=== PATIENT | female | born 1965 | race Caucasian/White ===

== ENCOUNTER 2021-12-14 07:13 | Outpatient (CLI) | payer OTHER, SELFPAY ==
--- NOTE | ~2021-12-14 | MM_ITS ---
EXAMINATION: MM screening [facility] [place] BI w kevin HISTORY: Screening mammogram TECHNIQUE: Craniocaudal and mediolateral oblique 3-D tomosynthesis images were obtained and synthetic 2-D images were generated. CAD analysis was submitted and interpreted. COMPARISON: 01/16/2019, 12/30/2018 11/29/2015, 11/16/2015 BREAST PARENCHYMAL COMPOSITION: There are scattered areas of fibroglandular density. FINDINGS: RIGHT BREAST: There is no evidence of suspicious mass, calcification, or architectural distortion to suggest malignancy. There has been no significant interval change. LEFT BREAST: There is a possible mass in the middle third of the upper inner breast best appreciated 7 cm from the nipple on the craniocaudal view. IMPRESSION: 1. Possible left breast mass. 2. Additional mammographic views and possible breast ultrasound are recommended. BI-RADS Category 0: Incomplete: Needs additional imaging evaluation. Reviewed, dictated and finalized at location A. EGEE FINISHER IMPRESSION: 1. Possible left breast mass. 2. Additional mammographic views and possible breast ultrasound are recommended . BI-RADS Category 0: Incomplete: Needs additional imaging evaluation.
== END 2021-12-14 07:14 | disposition home or self-care (01) ==
LOC: ANHIMG 07:15
PROVIDERS: Visit Provider Advanced Practice Midwife
DX: Z12.31 Encounter for screening mammogram for malignant neoplasm of breast (principal); R92.8 Other abnormal and inconclusive findings on diagnostic imaging of breast
CPT/HCPCS: 77063; 77067

== ENCOUNTER 2022-01-01 13:21 | Outpatient (CLI) | payer OTHER, SELFPAY ==
--- NOTE | ~2022-01-01 | MMUS_ITS ---
EXAMINATION: MM diagnostic [facility] LT w kevin, US breast LT limited HISTORY: Follow-up left breast asymmetry TECHNIQUE: Additional 3-D tomosynthesis images of the left breast were performed and synthetic 2-D im ages were generated. CAD analysis was submitted and interpreted. High resolution Limited left breast ultrasound was performed. COMPARISON: 12/14/2021 BREAST PARENCHYMAL COMPOSITION: Breast composed of scattered areas of fibroglandular density. FINDINGS: MAMMOGRAPHIC FINDINGS: The focal asymmetry medial aspect of the left breast on CC view is less apparent with spot compressio n views, most likely superimposed fibroglandular tissue. No discrete mass or architectural distortion is identified. There are scattered benign left breast calcifications. ULTRASOUND: Limited left breast ultrasound: There is a surgical scar medially in the left breast. No discrete kade id or cystic masses are identified in the medial aspect of the left breast. No sonographic evidence f or malignancy. IMPRESSION: 1. No evidence for malignancy in the left breast. 2. Routine yearly screening mammogram and regular clinical breast examination are recommended. BI-RADS Category 2: Benign finding(s). Reviewed, dictated and finalized at location A. IMPRESSION: 1. No evidence for malignancy in the left breast. 2. Routine yearly screening mammogram and regular clinical breast examination a re recommended. BI-RADS Category 2: Benign finding(s).
== END 2022-01-01 13:22 | disposition home or self-care (01) ==
LOC: ANHIMG 13:24
PROVIDERS: PCP Internal Medicine; Visit Provider Advanced Practice Midwife
DX: R92.8 Other abnormal and inconclusive findings on diagnostic imaging of breast (principal)
CPT/HCPCS: 76642; 77061; 77065; G0279

== ENCOUNTER 2022-07-02 08:33 | Outpatient (CLI) | payer OTHER, SELFPAY ==
[2022-07-02 09:49] LABS: Anion Gap 9 mmol/L (8-16); Blood Urea Nitrogen 13 mg/dL (7-17); Calcium 9.1 mg/dL (8.4-10.2); Carbon Dioxide 27 mmol/L (22-30); Chloride 97 mmol/L (98-107); Estimated Glomerular Filt Rate > 60; Glucose 274 mg/dL (65-110); Sodium 133 mmol/L (137-145)
== END 2022-07-02 08:34 | disposition home or self-care (01) ==
PROVIDERS: Anesthesiology; PCP Internal Medicine; Visit Provider Urology
DX: N39.3 Stress incontinence (female) (male) (principal); E11.9 Type 2 diabetes mellitus without complications; Z01.818 Encounter for other preprocedural examination
CPT/HCPCS: 36415; 80048; 87086

== ENCOUNTER 2022-07-06 00:23 | Day surgery (SDC) | payer OTHER, SELFPAY ==
[2022-06-29 10:10] VITALS: BMI 35.4
--- NOTE | 2022-06-29 10:23 | PC.NURSE ---
Report to the Outpatient Waiting Room, entrance under the green pavilion located off [facility], at time 7:00 on date 07/06/22. OR Time: 9:00. Time changes happen often and if your time is changed the preop area will call you the afternoon before. - You and your visitor will be asked to self-screen and do not enter if you have any COVID symptoms. - Only one visitor and NO children visitors are allowed at this time. - The patient visitor is requested to leave or wait in car when not with patient due to restrictions. - A mask is required within the hospital. Patients may have clear liquids (water, carbonated beverages, clear teas, apple juice) until 3 hours prior to surgery (6:00) with a maximum of 20 ounces. - No food from midnight until time of surgery Take the following medications with a SIP of water the morning of surgery: NONE Medications to discontinue per physician: VITAMINS/SUPPLEMENTS Date to take last dose: 07/02/22 Please no make-up, nail kazakh, hairspray, perfume, deodorant, or body powder the day of surgery. No jewelry (including any body piercings) or valuables the day of surgery, leave them at home. Please take a shower or bath the night before, or the morning of, surgery with an antibacterial soap. Wear comfortable, loose fitting clothing. - Jewelry must be removed prior to entering the operating room. Rings and piercings that are not removed may be cut off. - The hospital will not accept responsibility for valuables. - Please leave all valuables, including medications, at home the day of surgery. If you are going home after surgery, a licensed parcel post truck driver must drive you home. - NO public transportation without another adult. - We recommend that an adult stay with you for 24 hours following discharge. - We also recommend that you do not drive, make important decision, drink alcoholic beverages, or take any drugs that were not prescribed by your health care provider for at least 24 hours after your discharge time. Follow any additional instructions given to you from your surgeon. If you or anyone in your household have experienced Covid symptoms in the past week, please notify your surgeon or the nurse liaison at the phone number below for possible testing. Telephone instructions given to PT - DAVID CERVANTES and asked if any additional questions and then verbalized understanding. Patient advised to call surgeon office or pre surgery nurse liaison [phone] if any additional questions.
--- NOTE | 2022-07-01 06:15 | PM.IMHP ---
H&P: HPI History of Present Illness Date/Time: 07/01/22 06:15 Chief Complaint: KIP Narrative: 56 yo with KIP PMFSH Family History Family History Sibling Family history of diabetes mellitus in first degree relative Family history of malignant neoplasm of thyroid Father Family history of heart disease in male family member before age 55 Mother Family history of heart disease in male family member before age 55 Social History Social History Smoking status: Never smoker Alcohol intake: current Drinks per week: 3 Substance use: current Substance use type: marijuana Other substance usage details: THC DROPS OCCASIONALLY Spiritual care concerns: No Meds Home Medications and Allergies Home Medications Medication Instructions Recorded Confirmed Type atorvastatin 80 mg tablet 80 mg PO HS 06/29/22 06/29/22 History calcium carbonate 600 mg calcium 600 mg PO BID 06/29/22 06/29/22 History (1,500 mg) tablet (Calcium) cetirizine 10 mg tablet 10 mg PO DAILY 06/29/22 06/29/22 History dulaglutide 0.75 mg/0.5 mL 0.75 mg subcut WEEKLY 06/29/22 06/29/22 History subcutaneous pen injector (Trulicity) lisinopril 10 mg tablet 10 mg PO DAILY 06/29/22 06/29/22 History metformin 500 mg tablet 1,000 mg PO BID 06/29/22 06/29/22 History multivitamin 1 tablet PO DAILY 06/29/22 06/29/22 History Allergies Allergy/AdvReac Type Severity Reaction Status Date / Time No Known Allergies Allergy Unverified 06/29/22 10:07 Exam Narrative: + urethral mobility Assessment and Plan Assessment and plan (1) KIP (stress urinary incontinence, female): Code(s): N39.3 - Stress incontinence (female) (male) Status: Acute Assessment and Plan: urethral sling
[2022-07-06 06:38] VITALS: BP 146/86; PULSE 74; RESP 16; TEMP 36.9; O2SAT 99
[2022-07-06] MEDS: LACTATED RINGERS 1,000 ML 30 ML IV CONT (06:56)
[2022-07-06 07:01] LABS: Glucose Point of Care 301 mg/dl (65-105)
--- NOTE | 2022-07-06 07:18 | WPDANESEPPF ---
Anes - Initial Pre Proc Eval Procedure: Operation Date: 07/06/22 08:15 Proposed Procedures p Urethral Sling - Corey Phillip MD Date/Time: 07/06/22 07:18 Surgeon: Corey Phillip MD Pre Op Diagnosis: stress incontinence Patient Data Age: 56 Gender: F Height: 1.75 m Weight: 111.9 kg Last Vital Signs Temp 36.9 C 07/06/22 06:38 Pulse 74 07/06/22 06:38 Resp 16 07/06/22 06:38 BP 146/86 H 07/06/22 06:38 Pulse Ox 99 07/06/22 06:38 O2 Del Method Room Air 07/06/22 06:38 Allergies Allergy/AdvReac Type Severity Reaction Status Date / Time No Known Allergies Allergy Unverified 06/29/22 10:07 Home Medications Medication Instructions Recorded Confirmed Type atorvastatin 80 mg tablet 80 mg PO HS 06/29/22 06/29/22 History calcium carbonate 600 mg calcium 600 mg PO BID 06/29/22 06/29/22 History (1,500 mg) tablet (Calcium) cetirizine 10 mg tablet 10 mg PO DAILY 06/29/22 06/29/22 History dulaglutide 0.75 mg/0.5 mL 0.75 mg subcut WEEKLY 06/29/22 06/29/22 History subcutaneous pen injector (Trulicity) lisinopril 10 mg tablet 10 mg PO DAILY 06/29/22 06/29/22 History metformin 500 mg tablet 1,000 mg PO BID 06/29/22 06/29/22 History multivitamin 1 tablet PO DAILY 06/29/22 06/29/22 History Laboratory Tests 07/06/22 06:54 POC Capillary Glucose 301 mg/dl H mg/dl (65-105) Patient hx anesthesia problems: none Family hx anesthesia problems: none Results Review: All pre-operative results and documents have been reviewed as part of the pre-operative evaluation. [facility] Past Medical History Medical History (Updated 07/06/22 @ 07:20 by Faustino Singh MD) Diabetes HTN (hypertension) Hyperlipidemia Osteoarthritis Family History Family History Sibling Family history of diabetes mellitus in first degree relative Family history of malignant neoplasm of thyroid Father Family history of heart disease in male family member before age 55 Mother Family history of heart disease in male family member before age 55 Social History Social History Smoking status: Never smoker Alcohol intake: current Drinks per week: 3 Substance use: current Substance use type: marijuana Other substance usage details: THC DROPS OCCASIONALLY Living arrangements: alone Spiritual care concerns: No Anes - Eval Final PreProcedure Day of Procedure 07/06/22 07:18 Patient weight: obese Heart: regular rate and rhythm Lungs: clear to auscultation and normal air movement Airway: Mallampati scale class II Neurological: alert and oriented Last oral intake: >/= 8 hours ASA classification: III Emergent: no Anesthetic plan: proceed Anesthesia type and monitoring: general GIVS Results Review: All pre-operative results and documents have been reviewed as part of the pre-operative evaluation. Informed Consent: The patient's anesthetic plan and its attendant risks and benefits were discussed with the patient/family/POA. Questions were solicited and answers provided to the satisfaction of the patient/family/POA.
--- NOTE | 2022-07-06 07:22 | WPDHPUPDATE1 ---
History and Physical Update Update Date/Time: 07/06/22 07:22 History and Physical has been reviewed, including an updated exam of the patient. There are NO changes in the patient's condition. Risks, benefits, and alternatives have been discussed and questions answered. Patient agrees to proceed with procedure.
[2022-07-06] MEDS: ceFAZolin 2 GM/D5W 50 ML 2 GM/50 ML BAG IVPB (08:16)
[2022-07-06] MEDS: BUPIVACAINE/EPINEPHRINE 0.25% 50 ML VIAL 20 ML INFILTRATE (08:30)
--- NOTE | 2022-07-06 08:45 | W.PM.PROC2 ---
Procedure Note - Detailed Date of Procedure 07/06/22 Pre-op Diagnosis stress incontinence Post-op Diagnosis Same Procedure Performed mid urethral sling cystoscopy Surgeon Corey Phillip MD Indications This is a female with confirm stress urinary incontinence. She desires surgical correction. She understands the risks of bleeding, infection, injury to the urinary tract, vaginal mesh extrusion, urinary tract mesh erosion, obstructive voiding requiring a secondary procedure, hip and leg pain, dyspareunia, inability to improve overactive bladder symptoms. She agrees to proceed. Findings Uncomplicated urethral sling Description of Procedure She was correctly identified. Informed consent obtained. She was brought the operating room. She was given appropriate anesthesia. She was given appropriate perioperative antibiotics. A time-out performed. I marked out the site of the inner thigh incisions. I anesthetized the skin and made those incisions. I anesthetized the anterior vaginal wall over the mid urethra. I made a 1 cm incision. I dissected out laterally taking great care not to injure the refilled vaginal wall. I passed the helical trocars. First on the left. Then on the right. I did this from the thigh incision towards the vaginal incision. The sling was connected to the trocars and brought out through the thigh incision. I tensioned the sling appropriately. I cut and the plastic sheaths. I then closed the incision with 2 0 Vicryl. On cystoscopy there is no tumors or surgical artifact. There was no surgical artifact in the urethra. I cut the excess sling material. Close incisions with glue. She was awakened and transferred to the PACU in stable condition. Implants Urethral sling Estimated Blood Loss 20 Drains No Packing No Pathology None sent Complications No immediate complications Condition Stable Disposition PACU
[2022-07-06 08:46] VITALS: BP 142/70; PULSE 75; RESP 16; O2SAT 96
[2022-07-06 09:15] VITALS: BP 135/78; PULSE 75; RESP 20
[2022-07-06 09:45] VITALS: BP 153/73; PULSE 63; RESP 20
[2022-07-06 10:10] VITALS: BP 150/82; PULSE 64; RESP 20
== END 2022-07-06 10:15 | disposition home or self-care (01) ==
PROVIDERS: PCP Internal Medicine; Visit Provider Urology
PROC: (CPT 57288; principal; 2022-07-06 08:15)
DX: N39.3 Stress incontinence (female) (male) (principal); I10 Essential (primary) hypertension; E11.9 Type 2 diabetes mellitus without complications; E78.5 Hyperlipidemia, unspecified; E66.9 Obesity, unspecified; Z68.36 Body mass index [BMI] 36.0-36.9, adult; F12.90 Cannabis use, unspecified, uncomplicated; Z79.899 Other long term (current) drug therapy; Z79.84 Long term (current) use of oral hypoglycemic drugs
CPT/HCPCS: 57288; 36415; 80048; 82948; 87086; A9270; C1771; J0690; J2250; J2704; J3010; J7030; J7120

== ENCOUNTER 2022-08-22 16:51 | Emergency (ER) | payer OTHER, SELFPAY ==
--- NOTE | ~2022-08-22 | XR_ITS ---
XR ankle RT min 3V DATE: 08/22/2022 17:40 INDICATION: Injury to right ankle today. Lateral pain. TECHNIQUE: 4 views COMPARISON: None FINDINGS: There is mild lateral soft tissue swelling. There is a mildly laterally displaced approximately 1.4 mm wide 7 mm vertical cortical avulsion fract ure of uncertain age from the lateral aspect of the lateral malleolus. Small os subfibulare. Mild plantar and slight posterior calcaneal enthesopathy. IMPRESSION: Cortical avulsion fracture of undetermined age from the lateral aspect of the lateral mal leolus, mild lateral soft tissue swelling Reviewed, dictated and finalized at location A. ER/ASSAY TECH IMPRESSION: Cortical avulsion fracture of undetermined age from the lateral asp ect of the lateral malleolus, mild lateral soft tissue swelling
[2022-08-22 18:24] VITALS: BP 143/81; PULSE 76; RESP 14; TEMP 36.7; O2SAT 98
--- NOTE | 2022-08-22 18:37 | ED.LOWEXIN ---
HPI - Extremity Injury (Lower) General Chief Complaint: Extremity Injury, Lower Stated Complaint: right ankle pain Time Seen by Provider: 08/22/22 18:28 Source: RN notes reviewed History of Present Illness HPI Narrative: Patient presents emergency room from home for right lateral ankle pain. Patient states approximate 1:30 PM today she was walking off of the dock and stepped on the ground she states that she stepped awkwardly and had a pain in her right lateral ankle and felt a pop states since that time she had some swelling and pain in the right lateral ankle she denies feeling of the ground she denies any other trauma or injury she denies any numbness or tingling of the extremity Related Data Home Medications Medication Instructions Recorded Confirmed atorvastatin 80 mg tablet 80 mg PO HS 06/29/22 06/29/22 calcium carbonate 600 mg calcium 600 mg PO BID 06/29/22 06/29/22 (1,500 mg) tablet (Calcium) cetirizine 10 mg tablet 10 mg PO DAILY 06/29/22 06/29/22 dulaglutide 0.75 mg/0.5 mL 0.75 mg subcut WEEKLY 06/29/22 06/29/22 subcutaneous pen injector (Trulicity) lisinopril 10 mg tablet 10 mg PO DAILY 06/29/22 06/29/22 metformin 500 mg tablet 1,000 mg PO BID 06/29/22 06/29/22 multivitamin 1 tablet PO DAILY 06/29/22 06/29/22 Allergies Allergy/AdvReac Type Severity Reaction Status Date / Time No Known Allergies Allergy Unverified 06/29/22 10:07 Review of Systems Review of Systems: Gen.: Denies fevers or chills Musculoskeletal: See HPI Neuro: Denies numbness, tingling, weakness Skin: Denies rash Endo: Denies DM PMF Past Medical History Medical History Diabetes HTN (hypertension) Hyperlipidemia Osteoarthritis Family History Family History Sibling Family history of diabetes mellitus in first degree relative Family history of malignant neoplasm of thyroid Father Family history of heart disease in male family member before age 55 Mother Family history of heart disease in male family member before age 55 Social History Social History (Reviewed 11/09/22 @ 18:37 by GODWIN Camargo Smoking status: Never smoker Alcohol intake: current Drinks per week: 3 Substance use: current Substance use type: marijuana Other substance usage details: THC DROPS OCCASIONALLY Spiritual care concerns: No Exam Narrative: APPEARANCE: No acute distress, nontoxic, resting in bed Eyes: EOMI HEENT: Normocephalic, atraumatic, RESPIRATORY: No respiratory distress MUSCULOSKELETAl: Tender to palpation of the right lateral malleolus with swelling present no tenderness of the proximal fibula or the base of the fifth metatarsal dorsalis pedis pulse 2+, neurovascularly intact no tenderness of the anterior medial or posterior ankle NEURO: Awake and alert. Following commands, speech normal, no focal deficits SKIN:: Warm, dry. Normal Color no rash or lesions Course Course Emergency Course: Called discussed with Dr. Houser presentation work-up we recommend the patient be placed in an Dread wrap and crutches and for patient to obtain a ankle air splint from local drugstore follow-up as an outpatient Discussed with patient results of workup and diagnosis. Discussed need for follow-up with primary care, proper use of medication, and reasons to return to the emergency department. Patient understands and agrees to current treatment plan Vital Signs Vital signs: Vital Signs Temperature 98.1 F 08/22/22 18:24 Pulse Rate 76 08/22/22 18:24 Respiratory Rate 14 08/22/22 18:24 Blood Pressure 143/81 H 08/22/22 18:24 Pulse Oximetry 98 08/22/22 18:24 Oxygen Delivery Room Air 08/22/22 18:24 Temperature 98.1 F 08/22/22 18:24 Pulse Rate 76 08/22/22 18:24 Respiratory Rate 14 08/22/22 18:24 Blood Pressure 143/81 H 08/22/22 18:24 Pulse Oximetry 98 08/22/22 18:24 Oxygen Delivery Room Air
== END 2022-08-22 19:20 | disposition home or self-care (01) ==
PROVIDERS: Emergency Provider Emergency Medicine; PCP Internal Medicine
DX: S82.61XA Displaced fracture of lateral malleolus of right fibula, initial encounter for closed fracture (principal); E11.9 Type 2 diabetes mellitus without complications; I10 Essential (primary) hypertension; E78.5 Hyperlipidemia, unspecified; M19.90 Unspecified osteoarthritis, unspecified site; Z79.84 Long term (current) use of oral hypoglycemic drugs; Z79.85 Long-term (current) use of injectable non-insulin antidiabetic drugs
CPT/HCPCS: 73610; 99284

== ENCOUNTER 2022-10-24 10:10 | Emergency (ER) | payer OTHER, SELFPAY ==
[2022-10-24 10:16] VITALS: BP 143/69; PULSE 102; RESP 14; TEMP 37; O2SAT 99
--- NOTE | 2022-10-24 10:56 | ED.URI ---
HPI - URI/Sore Throat General Chief Complaint: Upper Respiratory Infection Stated Complaint: Congestion/Cough/Chest Congestion Time Seen by Provider: 10/24/22 10:25 Source: patient Mode of arrival: ambulatory Limitations: no limitations History of Present Illness HPI Narrative: Ms. Welch is a 56-year-old female patient presenting to the clinic today with complaints of nasal/ chest congestion and a productive cough with yellow-green phlegm. She reports that the symptoms started 6 days ago. She reports that she has had an exposure to the her grandson and daughter who tested positive for VENTURA MD elicited complaint: sore throat and nasal congestion Related Data Home Medications Medication Instructions Recorded Confirmed atorvastatin 80 mg tablet 80 mg PO HS 06/29/22 10/24/22 dulaglutide 0.75 mg/0.5 mL 0.75 mg subcut WEEKLY 06/29/22 10/24/22 subcutaneous pen injector (Trulicity) lisinopril 10 mg tablet 10 mg PO DAILY 06/29/22 10/24/22 metformin 500 mg tablet 1,000 mg PO BID 06/29/22 10/24/22 multivitamin 1 tablet PO DAILY 06/29/22 10/24/22 Allergies Allergy/AdvReac Type Severity Reaction Status Date / Time No Known Allergies Allergy Verified 10/24/22 10:40 Review of Systems Review of Systems: Pertinent positives per HPI. Patient denies any fever, chills, rash, headache, visual changes, dizziness, shortness of breath, chest pain, palpitations, nausea, vomiting, diarrhea, constipation, abdominal pain, or any urinary issues. [facility] Past Medical History Medical History Diabetes History of cancer HTN (hypertension) Hyperlipidemia Osteoarthritis Surgical History Surgical History History of cholecystectomy History of knee surgery left knee, meniscus repair Family History Family History Sibling Family history of diabetes mellitus in first degree relative Family history of malignant neoplasm of thyroid Cancer Father Family history of heart disease in male family member before age 55 Alcoholism Cancer Family history of diabetes mellitus in first degree relative Hypertension Heart disease Mother Family history of heart disease in male family member before age 55 Hypertension Heart disease Daughter Asthma Other Family history of diabetes mellitus in first degree relative Social History Social History Smoking status: Never smoker Alcohol intake: current Drinks per week: 3 Substance use: current Substance use type: marijuana Other substance usage details: THC DROPS OCCASIONALLY Spiritual care concerns: No Comments At the time of my signature, I reviewed and agree with the nursing past medical, surgical, social, and family history. There is no relevant family history pertinent to the patient complaint. Exam Narrative: General: Well-developed, well nourished, in no apparent distress Head: Normocephalic, atraumatic Eyes: Pupils equally round and reactive to light bilaterally, EOM intact, sclera and conjunctive clear, no discharge, lids normal Ears: TMs intact and clear, ear canals clear, no drainage, grossly hearing normal. Nose: Nares patent, clear nasal discharge, no inflammation, no sinus tenderness. Mouth: Oral pharynx without lesions or masses, good dentition, MMM. postnasal drip Neck: Supple, trachea midline, no enlargement of anterior or posterior cervical nodes, no thyroid masses or goiter palpable. Cardio: Regular rate and rhythm, s1 and s2 normal, no murmur appreciated. Resp: Clear to auscultation bilaterally, no rhonchi, rales, wheezing or rubs Course Course Emergency Course: Portions of this record may have been created with voice recognition software. Level of Care: Express Care Visit Vital Signs Vital signs: Vital Si
[2022-10-24 19:15] LABS: SARS-CoV-2 RNA PCR Negative
== END 2022-10-24 11:07 | disposition home or self-care (01) ==
PROVIDERS: Emergency Provider Nurse Practitioner Family; PCP Internal Medicine
DX: J06.9 Acute upper respiratory infection, unspecified (principal); Z20.822 Contact with and (suspected) exposure to COVID-19; E11.9 Type 2 diabetes mellitus without complications; I10 Essential (primary) hypertension; E78.5 Hyperlipidemia, unspecified; M19.90 Unspecified osteoarthritis, unspecified site; Z85.9 Personal history of malignant neoplasm, unspecified; Z79.84 Long term (current) use of oral hypoglycemic drugs
CPT/HCPCS: 87426; 99213; C9803; G0463; U0003; U0005

== ENCOUNTER 2022-12-05 11:03 | Outpatient (RCR) | payer OTHER, SELFPAY | END 2022-12-05 11:04 | disposition home or self-care (01) | LOC: ANHGOSHPT 11:03 | PROVIDERS: PCP Internal Medicine; Visit Provider Nurse Practitioner | DX: M25.571 Pain in right ankle and joints of right foot (principal) | CPT/HCPCS: 99199 ==

== ENCOUNTER 2023-03-18 11:40 | Outpatient (CLI) | payer OTHER, SELFPAY ==
--- NOTE | ~2023-03-18 | MM_ITS ---
EXAMINATION: MM screening [facility] BI w kevin HISTORY: Screening TECHNIQUE: Craniocaudal and mediolateral oblique 3-D tomosynthesis images were obtained and synthetic 2-D images were generated. CAD analysis was submitted and interpreted. COMPARISON: Comparison to multiple prior studies sequentially, with oldest reviewed study dated 12/2015. BREAST PARENCHYMAL COMPOSITION: There are scattered areas of fibroglandular density. FINDINGS: There is no evidence of suspicious mass, calcification, or architectural distortion to sugg est malignancy in either breast. There has been no suspicious interval change. IMPRESSION: 1. No mammographic evidence of malignancy. 2. Recommend routine screening mammography in one year. BI-RADS Category 1: Negative Reviewed, dictated and finalized at location A.
== END 2023-03-18 11:41 | disposition home or self-care (01) ==
LOC: CHSIMG 11:41
PROVIDERS: PCP Internal Medicine; Visit Provider Nurse Practitioner Obstetrics & Gynecology
DX: Z12.31 Encounter for screening mammogram for malignant neoplasm of breast (principal)
CPT/HCPCS: 77063; 77067

== ENCOUNTER 2024-05-08 13:58 | Outpatient (CLI) | payer OTHER, SELFPAY ==
--- NOTE | ~2024-05-08 | MM_ITS ---
EXAMINATION: MM screening [facility] BI w kevin HISTORY: Screening TECHNIQUE: Craniocaudal and mediolateral oblique 3-D tomosynthesis images were obtained and synthetic 2-D images were generated. CAD analysis was submitted and interpreted. COMPARISON: Comparison to multiple prior studies sequentially, with oldest reviewed study dated 12/30. BREAST PARENCHYMAL COMPOSITION: Not dense: There are scattered areas of fibroglandular density. FINDINGS: There is no evidence of suspicious mass, calcification, or architectural distortion to sugg est malignancy in either breast. There has been no suspicious interval change. IMPRESSION: 1. No mammographic evidence of malignancy. 2. Recommend routine screening mammography in one year. BI-RADS Category 2: Benign finding(s). Reviewed, dictated and finalized at location B.
--- NOTE | ~2024-05-08 | DEXA_ITS ---
Bone Density Report Name: DAVID CERVANTES Age: 58 Sex: Female Ethnicity: White Date of : 1965 Indication: postmenopausal; screening for osteoporosis; height loss; prior fracture; Referring Provider: CODY, MILO Cardenas Study: Bone densitometry was performed. Exam Date: May 08, 2024 Accession number: [id number] Bone Density: Region BMD T-score Z-score Classification AP Spine(L1-L4) 1.050 0.0 1.5 Normal Femoral Neck (Left) 0.842 -0.1 1.2 Normal Total Hip (Left) 0.942 0.0 1.0 Normal Femoral Neck (Right) 0.840 -0.1 1.2 Normal Total Hip (Right) 0.943 0.0 1.0 Normal Femoral Neck Mean 0.841 -0.1 1.2 Normal Total Hip Mean 0.942 0.0 1.0 Normal World Health Organization criteria for BMD impression classify patients as: Normal (T-score at or above -1.0), Osteopenia (T-score between -1.0 and -2.5), or Osteoporosis (T-score at or below -2.5). 10-year Fracture Risk: FRAX not reported because: All T-scores for Spine Total, Hip Total, Femoral Neck at or above -1.0 Clinical Information Provided by Patient: Has had a low trauma fracture Has used the following medications: Vitamin D, Calcium Patient maximum height was 69 Menopause Age: 51 No regular weight bearing exercise Drinks caffeinated beverages Onset of menses at age 11 Number of children 3 Impression: The patient has normal bone mass. The patient has risk factors, including: previous fracture. Discussion: BONE DENSITY IS ABOVE THE MINIMUM DESIRABLE LEVEL AT ALL SKELETAL SITES TESTED. This patient?s bone mineral density is above the minimum desirable level (T-score -1.0 or better) at all sites measured. The patient should follow a healthful lifestyle (good nutrition with adequate calcium and vitamin D, and appropriate weight-bearing exercise). Follow-Up: Consider repeating this study in 5 years or sooner if there is some new clinical indication. Reported by: Dr. Pedro Daly on 05/08/2024 2:37:00 PM. Reviewed, dictated and finalized at location A.
== END 2024-05-08 13:59 | disposition home or self-care (01) ==
PROVIDERS: PCP Nurse Practitioner; Visit Provider Nurse Practitioner
DX: Z12.31 Encounter for screening mammogram for malignant neoplasm of breast (principal); Z78.0 Asymptomatic menopausal state
CPT/HCPCS: 77063; 77067; 77080

== ENCOUNTER 2025-05-07 14:53 | Outpatient (CLI) | payer OTHER, SELFPAY ==
--- NOTE | ~2025-05-07 | MM_ITS ---
EXAMINATION: MM screening [facility] BI w kevin HISTORY: Screening TECHNIQUE: Craniocaudal and mediolateral oblique 3-D tomosynthesis images were obtained and synthetic 2-D images were generated. CAD analysis was submitted and interpreted. COMPARISON: Comparison to multiple prior studies sequentially, with oldest reviewed study dated 02/2019. BREAST PARENCHYMAL COMPOSITION: Not dense: There are scattered areas of fibroglandular density. FINDINGS: Developing clustered indeterminate calcifications upper outer quadrant of the right breast, middle third. Left breast is stable without evidence for malignancy. IMPRESSION: 1. Developing cluster of indeterminate right breast calcifications, upper outer quadrant, middle thir d. 2. Magnification views are recommended. BI-RADS Category 0: Incomplete: Needs additional imaging evaluation. Reviewed, dictated and finalized at location A. IMPRESSION: 1. Developing cluster of indeterminate right breast calcifications, upper outer quadrant, middle third. 2. Magnification views are recommended. BI-RADS Category 0: Incomplete: Needs additional imaging evaluation.
--- OUTSIDE RECORDS SUMMARY | 2025-05-07 14:56 | XMS_ITS | Clinical Summary ---
Author Organization [facility] Address [address] [place] [address] Care Team Providers Care Lavatory Attendant Name Role Phone Unavailable Primary Care Provider Unavailabl e Source Comments [facility],non-owned Affiliates and Associated Physician Practices is amultiple site organization consisting of ambulatory clinics and hospital sitesin [place], [place], [place] and [place]. This disclosure is being madepursuant to the Care Everywhere program and may not contain all information available regarding this patient. Last updated 18.[employer] [facility] Allergies No known active allergies Medications * Be aware that medications may not be up to date on this document. Alwaysverify current medications with the patient. 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 Gender Identity Not on file Sexual Orientation Not on file Last Filed Vital Signs Vital Sign Reading Time Taken Comments Blood Pressure 142/90 11/18/2018 10:30 AM TIPPLE REPAIRER Pulse 94 11/18/2018 10:03 AM TIPPLE REPAIRER Temperature 36.8 C (98.2 F) 11/18/2018 10:03 AM TIPPLE REPAIRER Respiratory Rate 16 11/18/2018 10:03 AM TIPPLE REPAIRER Oxygen Saturation 98% 11/18/2018 10:03 AM TIPPLE REPAIRER Inhaled Oxygen Concentration - - Weight 108.9 kg (240 lb) 11/18/2018 10:03 AM TIPPLE REPAIRER Height 175.3 cm (5' 9) 11/18/2018 10:03 AM TIPPLE REPAIRER Body Mass Index 35.44 11/18/2018 10:03 AM TIPPLE REPAIRER Plan of Treatment Health Maintenance Due Date Last Done Comments COLOGUARD (AGES 45-75) - COL ON CA SCREENING 1965 COLON MONITORING 1963 COLONOSCOPY - COLON CA SCREENING 1963 CT COLONOGRAPHY - COLON CA SCREENING 1965 Colorectal Cancer Screening 1965 FIT - COLON CA SCREENING 1963 FLEX SIG - COLON CA SCREENING 1963 LIPID TESTING 1965 MAMMOGRAM 1963 HIV SCREENING 1978 HEPATITIS C SCREENING 11/22/1981 DTAP/TDAP/TD VACCINES (1 - Tdap) 1982 PAP with HPV 1993 PNEUMOCOCCAL VACCINE 50+ (1 of 1 - PCV) 2013 ZOSTER VACCINE (1 of 2) 2013 SCREENING FOR DIABETES 09/07/2017 COVID-19 VACCINE (1 - 2023-2 5 season) 2024 DEPRESSION SCREENING 10/14/2024 INFLUENZA VACCINE (#1) 2025 Respiratory Syncytial Virus (RSV) Vaccine Pt: or over 60 yrs (1 - 1-dose 75+ series) 2038 HEPATITIS B VACCINE Aged Out No longe r eligible based on patient's age to complete this topic HIB VACCINE Aged Out No longer eligi ble based on patient's age to complete this topic HPV VACCINE Aged Out No longer eligi ble based on patient's age to complete this topic MENINGOCOCCAL (Group B) VACC INE SHARED DECISION-MAKING Aged Out No longer eligibl e based on patient's age to complete this topic MENINGOCOCCAL GROUPS A/C/Y/W VACCINE Aged Out No longer eligible b ased on patient's age to complete this topic [place] [place] [address] [facility]
--- OUTSIDE RECORDS SUMMARY | 2025-05-07 14:56 | XMS_ITS | Referral Summary ---
Author Organization [facility] [address] Address [address] [place] [id number] Care Team Providers Care [employer] Professor Name Role Phone Quin Corley MD Primary Care Provide r Allergies No known active allergies Medications lovastatin (MEVACOR) 20 mg tablet take 1 tablet by oral route every day with the evening meal 90 3 03/21/2016 Active metFORMIN (GLUCOPHAGE) 850 mg tablet take 1 tablet by ORAL route 2 times every day with meals 180 3 03/21/2016 Active lisinopriL (PRINIVIL,ZESTR IL) 10 mg tablet Take 1 tablet (10 mg total) by mouth daily Active Trulicity 0.75 mg/0.5 mL pen injector 06/23/2021 Active albuterol HFA (PROVENTIL HFA,VENTOLIN HFA,PROAIR HFA) 90 mcg/actuation inhaler Inhale 2 puffs every 4 (four) hours as needed for wheezing 1 each 04/24/2022 Active albuterol HFA (PROVENTIL HFA,VENTOLIN HFA,PROAIR HFA) 90 mcg/actuation inhalerIndicati ons:Hx of wheezing Inhale 2 puffs every 6 (six) hours as needed for wheezing 1 each 12/28/2024 12/29/19 26 Active tirzepatide (Mounjaro) 10 mg/0.5 mL pen injector injection Inject 0.5 mL (10 mg total) under the skin every 7 days Active Synjardy XR 25-1,000 mg tablet, IR & ER, biphasic 24hr Take 1 tablet by mouth daily Active Active Problems No known active problems Immunizations Immunization Administration Dates Next Due Tdap 08/01/2020 Social History Tobacco Use Types Packs/Day Years Used Date Smoking Tobacco: Never Smokeless Tobacco: Never Alcohol Use Standard Drinks/Week Comments Yes 0 (1 standard drink = 0.6 oz pur e alcohol) Comments Unknown Sex and Gender Information Value Date Recorded Sex Assigned at Not on file 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 Gender Identity Female 04/24/2022 5:02 PM CDT Sexual Orientation Not on file Last Filed Vital Signs Vital Sign Reading Time Taken Comments Blood Pressure 135/86 01/03/2025 9:44 AM CDT Pulse 76 01/03/2025 9:44 AM CDT Temperature 36.7 C (98.1 F) 01/03/2025 9:44 AM CDT Respiratory Rate 20 01/03/2025 9:44 AM CDT Oxygen Saturation 99% 01/03/2025 9:44 AM CDT Inhaled Oxygen Concentration - - Weight 103.4 kg (228 lb) 01/03/2025 9:44 AM CDT Height 175.3 cm (5' 9) 04/24/2022 6:19 PM CDT Body Mass Index 33.67 04/24/2022 6:19 PM CDT Plan of Treatment Not on file Insurance [facility] H[facility]/PPO Address: [facility] [address] [place] [address] [place] [address] [facility] H[facility]/PPO Address: [facility] [id number] [place] [address] Care Teams [employer] Professor Relationship Specialty Start Date End Date Quin Corley MD [address] [address] PCP - General Internal Medicine 09/01/21
--- OUTSIDE RECORDS SUMMARY | 2025-05-07 14:56 | XMS_ITS | Continuity of Care Document ---
Author Organization [facility] Address [address] [address] Insurance Providers Payer Plan Claims Address Claims Phone Policy Number Group Number Relation Employer Guarantor Name Guarantor Guarantor Address Guarantor Phone [facility] [address] [address], [place] [address] tel:[phone] Self Nilsa Ponceaker 1965 [address], [place] [address] [facility] [address] [address], [place] [address] tel:[phone] Self Nilsa Ponceaker 1965 [address] [place] [address] [facility] [address] [address], [place] [address] tel:[phone] Self Nilsa Welch 1965 [address] [place] [address] Problems Condition ICD9 code ICD10 code SNOMED code Start Date End Date S tatus Encounter for screening for other metabolic disorders Z13.228 Results No Results Allergies, adverse reactions, alerts No known allergies and adverse reactions Medications No administered medications reported Vital Signs No vital signs reported Social History No smoking Hx information available
--- OUTSIDE RECORDS SUMMARY | 2025-05-07 14:56 | XMS_ITS | Clinical Summary ---
Author Organization [facility] [address] [place] Address [address] [place] [id number] Care Team Providers Care Counseling Department Chair Name Role Phone Quin Corley MD Primary [...] Immunization Administration Dates Next Due Tdap 08/01/2020 Surgical History Surgery Date Site/Laterality Comments KNEE SURGERY knee surgery CHOLECYSTECTOMY Medical History Medical History Date Comments Type 2 diabetes mellitus (HCC) D iabetes type 2 Hyperlipidemia Family History Medical History Relation Name Comments Thyroid cancer Brother Cancer, thyro id; Relation Name Status Comments Brother Social History Tobacco Use Types Packs/Day Years Used Date Smoking Tobacco: Never Smokeless Tobacco: Never Alcohol Use Standard Drinks/Week Comments Yes 0 (1 standard drink = 0.6 oz pur e alcohol) Comments Unknown Sex and Gender Information Value Date Recorded Sex Assigned at Not on file 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 Gender Identity Female 04/24/2022 5:02 PM CDT Sexual Orientation Not on file Obstetrics History Last Filed Vital Signs Vital Sign Reading [...] 04/24/2022 6:19 PM CDT Plan of Treatment Health Maintenance Due Date Last Done Comments Cervical Cancer Screening 1965 Colon Cancer Screening-Colonoscopy 1963 Depression Screening 1963 Hepatitis C Screening 1963 Hepatitis B Screening 1981 Regular Well Visit/Exam 18-64 1981 Zoster Vaccine (1 of 2) 2013 Breast Cancer Screening-Mammogram 01/01/2023 01/01/2022, 12/14/2021, 05/16/2011 Covid-19 Vaccine (2023-2 5 season) 2024 12/07/2020, 11/16/2020 Influenza Vaccine (#1) 2025 DTaP/Tdap/Td Vaccine (2 - Td or Tdap) 08/01/2030 08/01/2020 Pneumococcal vaccine <65 Aged Out No longer eligible based on patient's age to complete this topic Insurance [facility] Care Teams Counseling Department Chair Relationship Specialty Start Date End Date Quin Corley MD [address] [address] PCP - General Internal Medicine 09/01/21
--- OUTSIDE RECORDS SUMMARY | 2025-05-07 14:57 | XMS_ITS | Clinical Summary ---
Author Organization [facility] [place] Address [address] [facility] [place] [facility] [place] [address] Phone Care Team Providers Care Warp Trucker Name Role Phone Agustín Saucedo MD Primary Care Provider Unavai lable Allergies No known active allergies Medications CALCIUM ORAL Take by mouth. Active MULTIVITAMIN ORAL Take by mouth. 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 Gender Identity Not on file Sexual Orientation Not on file Occupation Industry Job Start Date Job End Date Not on file Not on file Not on file Not on file Last Filed Vital Signs Vital Sign Reading Time Taken Comments Blood Pressure 137/93 06/26/2011 3:41 PM CDT Pulse 102 06/26/2011 3:41 PM CDT Temperature - - Respiratory Rate - - Oxygen Saturation - - Inhaled Oxygen Concentration - - Weight 125.6 kg (277 lb) 06/26/2011 3:41 PM CDT Height 175.3 cm (5' 9) 06/26/2011 3:41 PM CDT Body Mass Index 40.91 06/26/2011 3:41 PM CDT Plan of Treatment Health Maintenance Due Date Last Done Comments DTAP/TDAP/TD VACCINES (1 - Tdap) 1982 HPV/Cotest (21-29) 1984 CERVICAL CANCER SCREENING 1993 HPV/Cotest (30-65) 1993 PAP SMEAR 1993 COLORECTAL SCREENING 2008 Colorectal Cancer Screening 2008 FIT-DNA Q 3 years 2008 FIT/FOBT Q 1 year 2008 Flex Sig/CT Colonography Q 5 years 2008 BREAST CANCER SCREENING 05/28/2012 05/28/20 11, 05/16/2011, 03/09/2010, Additional history exists ZOSTER VACCINE (1 of 2) 2013 INFLUENZA VACCINE (#1) 2025 RSV VACCINE (60+ or ) (1 - 1-dose 75+ series) 2038 Procedures Procedure Name Priority Date/Time Associated Diagnosis Comments MAMMO DIAGNOSTIC UNI LEFT W OR WO CAD Routine 05/28/2011 from Last 3 Months or Most Recently Relevant to Health Maintenance Results * (ABNORMAL) MAMMO DIGITAL DIAG UNI LEFT (05/28/2011) Anatomical Region Laterality Modality Breast Left Other us Elvi Turk MD MAMMO ORDERABLES Final Result from Last 3 Months or Most Recently Relevant to Health Maintenance Insurance Care Teams Warp Trucker Relationship Specialty Start Date End Date Agustín Saucedo MD PCP - General Internal Medicine 06/26/11
--- OUTSIDE RECORDS SUMMARY | 2025-05-07 14:57 | XMS_ITS | Data Portability ---
Author Organization [place] [facility], [address] Office Address [address] [place] [address] Assessment No assessment recorded. Plan of Treatment Reminders Order Date Submit Date Provider Last Modified By Organization Details Last Modified Time Details Appointments Provider Follow-Up ([facility]) 2024 10:30A M Samreen Chance NP Not available Not available Not available Lab None recorded. Referral None recorded. Procedures None recorded. Surgeries None recorded. Imaging None recorded. Medication Orders Synjardy XR 25 mg-1,000 mg tablet, extended release 2024 025 THORNTON [facility], [address] [place] [address], [address], [place], [place], [id number], 02/16/2025 12:00:20 Mounjaro 12.5 mg/0.5 mL subcutane ous pen injector 2024 025 ELLY [facility], [address] [place] [address], [address], [place], [place], [id number], 02/16/2025 12:00:18 ondansetr on 4 mg disintegr ating tablet 2023 025 THORNTON [facility][id number], [address] [place], [id number], 02/16/2025 12:03:41 Mounjaro 10 mg/0.5 mL subcutane ous pen injector 2023 024 [email or web address] [facility], [address], [address], [place], [place], [id number], 02/16/2025 12:03:16 Synjardy XR 25 mg-1,000 mg tablet, extended release 2023 024 ELLY [facility], [address], [address], [place], [place], [id number], 08/25/2024 13:39:33 Mounjaro 10 mg/0.5 mL subcutane ous pen injector 2023 024 [email or web address] [facility], [address], [address], [place], [place], [id number], 02/16/2025 12:03:16 Synjardy XR 25 mg-1,000 mg tablet, extended release 2023 024 ELLY [facility], [address], [address], [place], [place], [id number], 04/21/2024 11:37:49 ondansetr on 8 mg disintegr ating tablet 2023 024 THORNTON [facility] #[id number], [address], [place], [id number], 06/02/2024 12:32:41 Synjardy XR 25 mg-1,000 mg tablet, extended release 2023 024 THORNTON [facility] #[id number], [address], [place], [id number], 03/24/2024 11:08:29 Mounjaro 10 mg/0.5 mL subcutane ous pen injector 2023 024 [email or web address] [id number], [address], [place], [id number], 02/16/2025 12:03:16 Patient TargetsNo targets recorded. Patient Instructions Encounter Date Encounter Id Patient Instructions Last Modified By Organization Details Last Modified Time 03/24/2024 [id number] Suggested alejandra quevedo The Diabetes Code by Dylan Bell MD HYPOGLYCEMIA INSTRUCTIONS - Keep rapid glucose sources such as glucose gel (usually in 15-45 gm tubes), hard candy (3-4 pieces are approximately 10-15 grams), or 1/2 can sugared sodas (30-70 grams per can) readily available only for symptomatic hypoglycemia - Contact your primary care provider immediately or call 911 for severe symptomatic hypoglycemia that is unresponsive to 15 grams of glucose after 15 minutes. EMERGENCY INSTRUCTIONS - Contact our office if you have any additional questions Call your local emergency number (911 in the [place]) for any of the following: You have any of the following signs of a stroke: - Numbness or drooping on one side of your face - Weakness in an arm or leg - Confusion or difficulty speaking - Dizziness, a severe headache, or vision loss You have any of the following signs of a heart attack: - Squeezing, pressure, or pain in your chest - You may also have any of the following: - Discomfort or pain in your back, neck, jaw, stomach, or arm - Shortness of breath - Nausea or vomiting - Lightheadedness or a sudden cold sweat - You have trouble breathing. Call your doctor or go to the Emergency Department immediately if: - You have severe abdominal pain. - You vomit for more than 2 hours. - You have trouble staying awake or focusing. - You are shaking or sweating. - You feel weak or more tired than usual. - You have blurred or double vision. - Your breath has a fruity, sweet smell. - Your arms and legs are swollen. - You have an upset stomach and cannot eat the foods on your meal plan. - You feel dizzy, have headaches, or are easily irritated. - Your skin is red, warm, dry, or swollen. - You have a wound that does not heal. - You have numbness in your arms or legs. - You have trouble coping with your illness, or you feel anxious or depressed. - You have questions or concerns about your condition or care. [email or web address] Not available 03/22/2024 14:42:19 . Care Team Note Broom Maker Goal(s): Improve blood sugars, weight loss, and remission. CLEMENTINE/low carb: Approved for 14 hour CLEMENTINE. Needs 75 gr CHO Barriers or contraindications: Her mom FYI/Ongoing Info: Does not have a PCP. Labs received and reviewed. Normal renal panel Primary Focus of Visit: TIR up to 68% from 12% and GMI down to 7.3% from 8.5%. Next steps: Increase Mounjaro to 10mg and and switch Metformin to Synjardy XR. Advised to download savings cards [email or web address] Not available 03/24/2024 11:15:48 04/21/2024 [id number] Suggested alejandra quevedo The Diabetes Code by Dylan Bell MD HYPOGLYCEMIA INSTRUCTIONS - Keep rapid glucose sources such as glucose gel (usually in 15-45 gm tubes), hard candy (3-4 pieces are approximately 10-15 grams), or 1/2 can sugared sodas (30-70 grams per can) readily available only for symptomatic hypoglycemia - Contact your primary care provider immediately or call 911 for severe symptomatic hypoglycemia that is unresponsive to 15 grams of glucose after 15 minutes. EMERGENCY INSTRUCTIONS - Contact our office if you have any additional questions Call your local emergency number (911 in the [place]) for any of the following: You have any of the following signs of a stroke: - Numbness or drooping on one side of your face - Weakness in an arm or leg - Confusion or difficulty speaking - Dizziness, a severe headache, or vision loss You have any of the following signs of a heart attack: - Squeezing, pressure, or pain in your chest - You may also have any of the following: - Discomfort or pain in your back, neck, jaw, stomach, or arm - Shortness of breath - Nausea or vomiting - Lightheadedness or a sudden cold sweat - You have trouble breathing. Call your doctor or go to the Emergency Department immediately if: - You have severe abdominal pain. - You vomit for more than 2 hours. - You have trouble staying awake or focusing. - You are shaking or sweating. - You feel weak or more tired than usual. - You have blurred or double vision. - Your breath has a fruity, sweet smell. - Your arms and legs are swollen. - You have an upset stomach and cannot eat the foods on your meal plan. - You feel dizzy, have headaches, or are easily irritated. - Your skin is red, warm, dry, or swollen. - You have a wound that does not heal. - You have numbness in your arms or legs. - You have trouble coping with your illness, or you feel anxious or depressed. - You have questions or concerns about your condition or care. [email or web address] Not available 04/15/2024 15:44:29 . Care Team Note Broom Maker Goal(s): Improve blood sugars, weight loss, and remission. CLEMENTINE/low carb: Approved for 14 hour CLEMENTINE. Needs 75 gr CHO Barriers or contraindications: Her mom FYI/Ongoing Info: Does not have a PCP. Labs received and reviewed. Normal renal panel Primary Focus of Visit: TIR up to 93% from 68% and GMI down to 6.7% from 7.3%. Next steps: Increase Mounjaro to 10mg and continue Synjardy XR. Advised to download savings cards [email or web address] Not available 04/21/2024 11:40:21 06/02/2024 [id number] Suggested alejandra quevedo The Diabetes Code by Dylan Bell MD HYPOGLYCEMIA INSTRUCTIONS - Keep rapid glucose sources such as glucose gel (usually in 15-45 gm tubes), hard candy (3-4 pieces are approximately 10-15 grams), or 1/2 can sugared sodas (30-70 grams per can) readily available only for symptomatic hypoglycemia - Contact your primary care provider immediately or call 911 for severe symptomatic hypoglycemia that is unresponsive to 15 grams of glucose after 15 minutes. EMERGENCY INSTRUCTIONS - Contact our office if you have any additional questions Call your local emergency number (911 in the [place]) for any of the following: You have any of the following signs of a stroke: - Numbness or drooping on one side of your face - Weakness in an arm or leg - Confusion or difficulty speaking - Dizziness, a severe headache, or vision loss You have any of the following signs of a heart attack: - Squeezing, pressure, or pain in your chest - You may also have any of the following: - Discomfort or pain in your back, neck, jaw, stomach, or arm - Shortness of breath - Nausea or vomiting - Lightheadedness or a sudden cold sweat - You have trouble breathing. Call your doctor or go to the Emergency Department immediately if: - You have severe abdominal pain. - You vomit for more than 2 hours. - You have trouble staying awake or focusing. - You are shaking or sweating. - You feel weak or more tired than usual. - You have blurred or double vision. - Your breath has a fruity, sweet smell. - Your arms and legs are swollen. - You have an upset stomach and cannot eat the foods on your meal plan. - You feel dizzy, have headaches, or are easily irritated. - Your skin is red, warm, dry, or swollen. - You have a wound that does not heal. - You have numbness in your arms or legs. - You have trouble coping with your illness, or you feel anxious or depressed. - You have questions or concerns about your condition or care. [email or web address] Not available 05/29/2024 16:07:48 . Care Team Note Half-Way Goal(s): Improve blood sugars, weight loss, and remission. CLEMENTINE/low carb: Approved for 14 hour CLEMENTINE. Needs 75 gr CHO Barriers or contraindications: Her mom FYI/Ongoing Info: Does not have a PCP. Labs received and reviewed. Normal renal panel Primary Focus of Visit: TIR up to 96% from 93% and GMI stable at 6.6%. Next steps: Increase Mounjaro to 10mg and continue Synjardy XR. [email or web address] Not available 06/02/2024 12:35:47 08/25/2024 [id number] Suggested alejandra quevedo The Diabetes Code by Dylan Bell MD HYPOGLYCEMIA INSTRUCTIONS - Keep rapid glucose sources such as glucose gel (usually in 15-45 gm tubes), hard candy (3-4 pieces are approximately 10-15 grams), or 1/2 can sugared sodas (30-70 grams per can) readily available only for symptomatic hypoglycemia - Contact your primary care provider immediately or call 911 for severe symptomatic hypoglycemia that is unresponsive to 15 grams of glucose after 15 minutes. EMERGENCY INSTRUCTIONS - Contact our office if you have any additional questions Call your local emergency number (911 in the [place]) for any of the following: You have any of the following signs of a stroke: - Numbness or drooping on one side of your face - Weakness in an arm or leg - Confusion or difficulty speaking - Dizziness, a severe headache, or vision loss You have any of the following signs of a heart attack: - Squeezing, pressure, or pain in your chest - You may also have any of the following: - Discomfort or pain in your back, neck, jaw, stomach, or arm - Shortness of breath - Nausea or vomiting - Lightheadedness or a sudden cold sweat - You have trouble breathing. Call your doctor or go to the Emergency Department immediately if: - You have severe abdominal pain. - You vomit for more than 2 hours. - You have trouble staying awake or focusing. - You are shaking or sweating. - You feel weak or more tired than usual. - You have blurred or double vision. - Your breath has a fruity, sweet smell. - Your arms and legs are swollen. - You have an upset stomach and cannot eat the foods on your meal plan. - You feel dizzy, have headaches, or are easily irritated. - Your skin is red, warm, dry, or swollen. - You have a wound that does not heal. - You have numbness in your arms or legs. - You have trouble coping with your illness, or you feel anxious or depressed. - You have questions or concerns about your condition or care. [email or web address] Not available 08/18/2024 16:21:12 Care Team Note L saul Term Goal(s): Improve blood sugars, weight loss, and remission. CLEMENTINE/low carb: Approved for 14 hour CLEMENTINE. Needs 75 gr CHO Barriers or contraindications: Her mom FYI/Ongoing Info: TIR down to 87% from 96% and GMI up to 7% from 6.6%. Primary Focus of Visit: 3 month care plan Next steps: Continue Mounjaro 10mg and continue Synjardy XR. [email or web address] Not available 08/25/2024 13:58:32 02/16/2025 [id number] Suggested alejandra quevedo The Diabetes Code by Dylan Bell MD HYPOGLYCEMIA INSTRUCTIONS - Keep rapid glucose sources such as glucose gel (usually in 15-45 gm tubes), hard candy (3-4 pieces are approximately 10-15 grams), or 1/2 can sugared sodas (30-70 grams per can) readily available only for symptomatic hypoglycemia - Contact your primary care provider immediately or call 911 for severe symptomatic hypoglycemia that is unresponsive to 15 grams of glucose after 15 minutes. EMERGENCY INSTRUCTIONS - Contact our office if you have any additional questions Call your local emergency number (911 in the [place]) for any of the following: You have any of the following signs of a stroke: - Numbness or drooping on one side of your face - Weakness in an arm or leg - Confusion or difficulty speaking - Dizziness, a severe headache, or vision loss You have any of the following signs of a heart attack: - Squeezing, pressure, or pain in your chest - You may also have any of the following: - Discomfort or pain in your back, neck, jaw, stomach, or arm - Shortness of breath - Nausea or vomiting - Lightheadedness or a sudden cold sweat - You have trouble breathing. Call your doctor or go to the Emergency Department immediately if: - You have severe abdominal pain. - You vomit for more than 2 hours. - You have trouble staying awake or focusing. - You are shaking or sweating. - You feel weak or more tired than usual. - You have blurred or double vision. - Your breath has a fruity, sweet smell. - Your arms and legs are swollen. - You have an upset stomach and cannot eat the foods on your meal plan. - You feel dizzy, have headaches, or are easily irritated. - Your skin is red, warm, dry, or swollen. - You have a wound that does not heal. - You have numbness in your arms or legs. - You have trouble coping with your illness, or you feel anxious or depressed. - You have questions or concerns about your condition or care. [email or web address] Not available 02/08/2025 16:17:41 Care Team Note L saul Term Goal(s): Improve blood sugars, weight loss, and remission. CLEMENTINE/low carb: Approved for 14 hour CLEMENTINE. Needs 75 gr CHO Barriers or contraindications: Stress eating FYI/Ongoing Info: TIR up to 98% from 87% and GMI down to 6.6% from 7%. Primary Focus of Visit: 6 month care plan Next steps: Increase Mounjaro 12.5 mg and continue Synjardy XR. [email or web address] Not available 02/16/2025 12:11:22 Reason for Referral None Reported. Problems Name Problem SNOMED Code Status Onset Date Resolution Date Notes Provider Name and Address Organization Details Recorded Time Hyperglycem ia due to type 2 diabetes mellitus 4137194125499 09 Active 2018 Samreen Chance NP null, [place] [facility] 10:04:55 Notes:Some problems listed i n Document: #[id number] could not be added to this patient's chart. Please review this document and add these problems to the patient's chart manually as needed. Problem Notes None recorded. Procedures Surgical History Date Name Laterality Status Provider Name and Address Organization Details Recorded Time Cholecystectomy completed Samreen brock NP [place] [facility] 11/22/2023 10:09:12 Imaging Results None recorded. Procedure Notes None recorded. Medical Equipment None Reported. Allergies No known drug allergies Medications Name Sig Start Date Stop Date Status Note LastModified by Organization Details LastModified Time on/go covid-19 antigen self-test kit 11/22 completed Not Available Not Available Not Available metformin 500 mg tablet two tablets twice daily 11/22 completed Not Available Not Available Not Available atorvastati n 80 mg tablet active Not Available Not Available Not Available lovastatin 40 mg tablet 11/22 completed Not Available Not Available Not Available metronidazo le 500 mg tablet TAKE 1 TABLET BY MOUTH EVERY 12 HOURS FOR 7 DAYS 11/22 completed Not Available Not Available Not Available ondansetron 8 mg disintegrat ing tablet Place 1 tablet twice a day by transling ual route. 06/02 completed Not Available Not Available Not Available lisinopril 10 mg tablet 08/25 completed Not Available Not Available Not Available ergocalcife rol (vitamin D2) 1,250 mcg (50,000 unit) capsule TAKE 1 CAPSULE BY MOUTH ONCE A WEEK FOR 8 WEEKS 11/22 completed Not Available Not Available Not Available ondansetron 4 mg disintegrat ing tablet Place 1 tablet 3 times a day by transling ual route as needed for 10 days. 02/16 completed Not Available Not Available Not Available metformin ER 500 mg tablet,exte nded release 24 hr Take 2 tablets every day by oral route. 03/24 completed Not Available Not Available Not Available Trulicity 0.75 mg/0.5 mL subcutaneou s pen injector once weekly injection 12/19 completed Not Available Not Available Not Available Synjardy XR 25 mg-1,000 mg tablet, extended release Take 1 tablet every day by oral route for 90 days. 2024 active Not Available Not Available Not Ray drummond Mounjaro 7.5 mg/0.5 mL subcutaneou s pen injector Inject 7.5 mg every week by subcutane ous route. 03/24 completed Not Available Not Available Not Available Mounjaro 5 mg/0.5 mL subcutaneou s pen injector Inject 5 mg every week by subcutane ous route for 28 days. 03/24 completed Not Available Not Available Not Available Mounjaro 10 mg/0.5 mL subcutaneou s pen injector INJECT THE CONTENTS OF ONE PEN SUBCUTANE OUSLY WEEKLY DIRECTED 02/16 completed Not Available Not Available Not Available Mounjaro 12.5 mg/0.5 mL subcutaneou s pen injector Inject 12.5 mg every week by subcutane ous route for 84 days. 2024 active Not Available Not Available Not Ray drummond Vitals Date Recorded Body height Body mass index (BMI) Body weight Provider Name and Address Organization Details Last Updated DateTime 02/16/2025 175.26 cm 31.7 kg/m2 40966.36 g Samreen Chance NP [place] [facility] 02/16/2025 11:57:40 Date Recorded Body height Body mass index (BMI) Body weight Provider Name and Address Organization Details Last Updated DateTime 03/24/2024 175.26 cm 33.8 kg/m2 018691.65 g Samreen Chance NP [place] [facility] 03/24/2024 11:12:08 Date Recorded Body height Body mass index (BMI) Body weight Provider Name and Address Organization Details Last Updated DateTime 04/21/2024 175.26 cm 32.9 kg/m2 688743.1 g Samreen Chance NP [place] [facility] 04/21/2024 11:28:59 Date Recorded Body height Body mass index (BMI) Body weight Provider Name and Address Organization Details Last Updated DateTime 06/02/2024 175.26 cm 31.9 kg/m2 31842.95 g Samreen Chance NP [place] [facility] 06/02/2024 12:34:04 Date Recorded Body height Body mass index (BMI) Body weight Provider Name and Address Organization Details Last Updated DateTime 08/25/2024 175.26 cm 32 kg/m2 30862.54 g Samreen Chance NP [place] [facility] 08/25/2024 13:40:35 Social History Question Answer Notes LastModified by Organizat ion Details LastModified Time Tobacco Smoking Status Never Smoker Samreen Chance NP null, [place] [facility] 11/22/2023 10:07:37 What Is Your Level Of Caffeine Consumption? Moderate [email or web address] Information not available 11/22/2023 CGM RX Approved? Yes [email or web address] Information not available 11/22/2023 EGFR Result: 86 (11/25/23) [email or web address] Informati on not available 11/26/2023 Creatinine Result: 0.79 (11/25/23) [email or web address] Information not available 11/26/2023 BUN Result: 16 (11/25/23) Informatio n not available 11/26/2023 Microalbumin/cr eatinine Ratio: 5 (11/25/23) [email or web address] Information not available 11/26/2023 Total Cholesterol: 146 (11/25/23) Information not available 11/26/2023 HDL: 51 (11/25/23) [email or web address] Information not available 11/26/2023 LDL: 79 (11/25/23) Information not available 11/26/2023 Triglycerides: 83 (11/25/23) [email or web address] Informa tion not available 11/26/2023 Foot Exam By Provider (yearly) Greater Than A Year [email or web address] Information not available 11/22/2023 Daily/regular Self Foot Exams Daily [email or web address] Information not available 11/22/2023 Dilated Eye Exam (yearly) Less Than A Year 06/2024. 05/2023. [email or web address] Information not available 11/22/2023 Dentist (1st Biannual Visit) Greater Than A Year [email or web address] Information not available 11/22/2023 Number Of Days Missed From Work, School Or Usual Routine Because Of Diabetes In The Last Year 0 [email or web address] Information not available 11/22/2023 Number Of Emergency Room Visits Or 911 Calls Requiring Assistance In The Last Year 0 [email or web address] Information not available 11/22/2023 Number Of Hospital Admissions For Diabetes Within The Last Year 0 [email or web address] Information not available 11/22/2023 What Year Were You Diagnosed With Type 2 Diabetes? 2019 [email or web address] Information not available 11/22/2023 C-Peptide: 83 (11/25/23) [email or web address] Information not available 11/26/2023 Who Manages And Prescribes Your Medication For Your Diabetes? Does Not Have A PCP [email or web address] Information not available 11/22/2023 Are You Currently ? No [email or web address] Information not available 11/22/2023 Are You Currently On Dialysis? No [email or web address] Information not available 11/22/2023 Sex: Unknown Functional Status Question Answer Note LastModified by Organizat ion Details LastModified Time What is your level of alcohol consumption? Occasional [email or web address] Information not available 11/22/2023 Mental Status None recorded. Family History Relationship Description Onset Age of this Age Resolved Age Notes LastModified by Organization Details LastModified Time Brother Type 2 diabetes mellitus [email or web address] Not available 11/22 10:09:57 Brother Malignant tumor of thyroid gland [email or web address] Not available 06/02 12:30:05 Father Type 2 diabetes mellitus Not available 11/22 10:09:57 Mother Carotid artery stenosis Not available 06/02 12:30:05 Medical History No medical history recorded. Gynecological HistoryNo gynecological history recorded. Obstetrics History GPAL:G 0 P 0 0 0 0 Past Encounters Encounter ID Performer Location Encounter Start Date Encounter Closed Date Diagnosis/Indication Diagnosis SNOMED-CT Code Diagnosis ICD10 Code Diagnosis Note [id number] Jeanette Acosta [facility] [address] [place] [id number] 03/28/2022 18:00:12 03/28/2022 18:12:02 [id number] Linnette Lorenzo [facility] [address] [place] [id number] 04/04/2022 16:39:54 04/04/2022 16:43:03 [id number] Samreen Chance NP [facility] Main Office [address] [facility] [address] [place] [id number] 11/22/2023 09:58:08 11/22/2023 10:21:35 Hyperglycemia due to type 2 diabetes mellitus [id number] E11.65 After visit rose jackson for 11/22/23: 1. Continue Trulicity 0.75mg weekly2. I will order labs prior to restarting Metformin. You ran out and do not have a PCP to refill3. You agreed to meet with Celia ALLEN, to review carbs, carb counting, food order, and 14 hour TRE4. Continue to Bike 3 times a week for 20 minutes5. You will call support to start using FSL6. Lab order sent to [facility]7. I will follow up in 4 weeks8. Schedule a dental appointmen t9. Work on finding a primary care provider Preventive health recommenda tions:1. Yearly dilated eye exam2. Yearly foot exam conducted by a health care provider3. Daily visual foot inspection 4. Yearly dental exam and dental cleaning at least twice a year Physical activity suggestion s: 1. It is recommende d to walk 10,000 steps per day. One strategy to achieve that goal is to get up and walk 250 steps each hour while sitting and working.2. It is recommende d to collect 150 minutes/we ek of moderate to brisk activity such as stationary bike or treadmill, chair exercises, body weight Meal planning suggestion s:1. The recommenda tion for grams of carbohydra michelle with each meal is 30-45 grams of carbs for women and 45-60 grams of carbs for men per meal. Snacks should be limited to less than 10 grams.2. No added sugars: soda, sweet tea, juice, milk, sports drinks, cookies, cakes, doughnuts, ice cream, alcohol3. No refined grains: bread, tortillas, popcorn, pretzels, chips, potatoes4. Eat non-starch y vegetables : broccoli, cauliflowe r, carrots, celery, cucumbers, spinach, kale, etc.5. Eat protein: eggs, cheese, chicken, beef, pork, fish6. Eat only healthy fats: avocado, peanut or almond butter, nuts, canola or olive oil, olives Blood sugar goals:Fast in-130Befo re meals: 110-140 1-2 hours after the start of a meal < 180One strategy for fine tuning blood sugars is to count how many carbs you ate with the meal 2 hours prior to checking a blood sugar reading. If the blood sugar is > 180 two hours after the start of the meal, you ate too many carbohydra michelle and will need to cut back at the next meal until you can consistent ly keep blood sugars < 180. Type 2 sang betes mellitus [id number] E11.9 [id number] Jeanette Acosta Level2 Main Office [address],[facility] [address] [place] [address] 12/06/2023 11:53:24 12/06/2023 13:37:04 [id number] Samreen Chance NP Level2 Main Office [address],[facility] [address] [place] [address] 12/20/2023 14:56:45 12/20/2023 15:16:20 Hyperglycemia due to type 2 diabetes mellitus [id number] 23142 E11.65 After visit rose jackson for 12/20/23: 1. Continue Mounjaro 5mg weekly on Saturday x 2 more doses. TIR 11%. Mild nausea first 2 days after the dose2. Increase Mounjaro 7.5mg when you finish the 5mg pens3. Increase Metformin ER 500mg from 1 tab twice a day to 2 tabs twice a day5. Continue to Bike 3 times a week for 20 minutes6. Schedule a dental appointmen t7. Work on finding a primary care provider8. I will follow up in 5 weeks and Jocey on 01/01/24 Preventive health recommenda tions:1. Yearly dilated eye exam2. Yearly foot exam conducted by a health care provider3. Daily visual foot inspection 4. Yearly dental exam and dental cleaning at least twice a year Physical activity suggestion s: 1. It is recommende d to walk 10,000 steps per day. One strategy to achieve that goal is to get up and walk 250 steps each hour while sitting and working.2. It is recommende d to collect 150 minutes/we ek of moderate to brisk activity such as stationary bike or treadmill, chair exercises, body weight Meal planning suggestion s:1. The recommenda tion for grams of carbohydra michelle with each meal is 30-45 grams of carbs for women and 45-60 grams of carbs for men per meal. Snacks should be limited to less than 10 grams.2. No added sugars: soda, sweet tea, juice, milk, sports drinks, cookies, cakes, doughnuts, ice cream, alcohol3. No refined grains: bread, tortillas, popcorn, pretzels, chips, potatoes4. Eat non-starch y vegetables : broccoli, cauliflowe r, carrots, celery, cucumbers, spinach, kale, etc.5. Eat protein: eggs, cheese, chicken, beef, pork, fish6. Eat only healthy fats: avocado, peanut or almond butter, nuts, canola or olive oil, olives Blood sugar goals:Fast in-130Befo re meals: 110-1401-2 hours after the start of a meal < 180 One strategy for fine tuning blood sugars is to count how many carbs you ate with the meal 2 hours prior to checking a blood sugar reading. If the blood sugar is > 180 two hours after the start of the meal, you ate too many carbohydra michelle and will need to cut back at the next meal until you can consistent ly keep blood sugars < 180. [id number] Jeanette Acosta Level2 Main Office [address] [place] [address] 01/09/2024 11:51:29 01/09/2024 14:11:31 [id number] Samreen Chance NP Level2 Main Office [address] [place] [address] 03/24/2024 10:59:43 03/24/2024 11:16:07 Hyperglycemia due to type 2 diabetes mellitus [id number] 11109 E11.65 After visit rose jackson for 24: 1. Continue Mounjaro 7.5mg weekly on Saturday. Last dose is today . Increase Mounjaro to 10 mg weekly on Saturday. If pharmacy does not have it in stock, ask what dose they have so I can send a prescripti on3. Start Synjardy XR 1 tablet in the morning since you are due for a metformin refill. Download the savings card. next time, we can transfer prescripti on to [facility]4. Continue to Bike 3 times a week for 20 minutes5. Schedule a dental appointmen t6. I will follow up in 4 weeks7. Keep looking for a PCP Preventive health recommenda tions:1. Yearly dilated eye exam2. Yearly foot exam conducted by a health care provider3. Daily visual foot inspection 4. Yearly dental exam and dental cleaning at least twice a year Physical activity suggestion s: 1. It is recommende d to walk 10,000 steps per day. One strategy to achieve that goal is to get up and walk 250 steps each hour while sitting and working.2. It is recommende d to collect 150 minutes/we ek of moderate to brisk activity such as stationary bike or treadmill, chair exercises, body weight Meal planning suggestion s:1. The recommenda tion for grams of carbohydra michelle with each meal is 30-45 grams of carbs for women and 45-60 grams of carbs for men per meal. Snacks should be limited to less than 10 grams.2. No added sugars: soda, sweet tea, juice, milk, sports drinks, cookies, cakes, doughnuts, ice cream, alcohol3. No refined grains: bread, tortillas, popcorn, pretzels, chips, potatoes4. Eat non-starch y vegetables : broccoli, cauliflowe r, carrots, celery, cucumbers, spinach, kale, etc.5. Eat protein: eggs, cheese, chicken, beef, pork, fish6. Eat only healthy fats: avocado, peanut or almond butter, nuts, canola or olive oil, olives Blood sugar goals:Fast in-130Befo re meals: 110-1401-2 hours after the start of a meal < 180 One strategy for fine tuning blood sugars is to count how many carbs you ate with the meal 2 hours prior to checking a blood sugar reading. If the blood sugar is > 180 two hours after the start of the meal, you ate too many carbohydra michelle and will need to cut back at the next meal until you can consistent ly keep blood sugars < 180. Nausea [id number] R11.0 [id number] Samreen Chance NP Level2 CT Office [address] [facility] [address] [place] [address] 04/21/2024 11:23:54 04/21/2024 11:36:20 Hyperglycemia due to type 2 diabetes mellitus [id number] 71672 E11.65 After visit rose jackson for 04/21/24: 1. Continue Mounjaro 7.5mg weekly on Saturday.2. Increase Mounjaro to 10 mg weekly on Saturday.3. Continue Synjardy XR 1 tablet in the morning. Download the savings card.4. Resume to Bike 3 times a week for 20 minutes. Add resistance training to help retain muscle mass5. Schedule a dental appointmen t6. Keep looking for a PCP7. [facility] Savings Card Customer Service: [phone]. I will follow up in 6 weeks Preventive health recommenda tions:1. Yearly dilated eye exam2. Yearly foot exam conducted by a health care provider3. Daily visual foot inspection 4. Yearly dental exam and dental cleaning at least twice a year Physical activity suggestion s: 1. It is recommende d to walk 10,000 steps per day. One strategy to achieve that goal is to get up and walk 250 steps each hour while sitting and working.2. It is recommende d to collect 150 minutes/we ek of moderate to brisk activity such as stationary bike or treadmill, chair exercises, body weight Meal planning suggestion s:1. The recommenda tion for grams of carbohydra michelle with each meal is 30-45 grams of carbs for women and 45-60 grams of carbs for men per meal. Snacks should be limited to less than 10 grams.2. No added sugars: soda, sweet tea, juice, milk, sports drinks, cookies, cakes, doughnuts, ice cream, alcohol3. No refined grains: bread, tortillas, popcorn, pretzels, chips, potatoes4. Eat non-starch y vegetables : broccoli, cauliflowe r, carrots, celery, cucumbers, spinach, kale, etc.5. Eat protein: eggs, cheese, chicken, beef, pork, fish6. Eat only healthy fats: avocado, peanut or almond butter, nuts, canola or olive oil, olives Blood sugar goals:Fast in-130Befo re meals: 110-1401-2 hours after the start of a meal < 180 One strategy for fine tuning blood sugars is to count how many carbs you ate with the meal 2 hours prior to checking a blood sugar reading. If the blood sugar is > 180 two hours after the start of the meal, you ate too many carbohydra michelle and will need to cut back at the next meal until you can consistent ly keep blood sugars < 180. [id number] Samreen Chance NP Level2 CT Office [address] [place] [address] [address] [place] [address] 06/02/2024 12:29:43 06/02/2024 12:45:44 Hyperglycemia due to type 2 diabetes mellitus [id number] 20502 E11.65 After visit rose jackson for 06/02/24: 1. Continue Mounjaro 10 mg weekly on Saturday.2. Continue Synjardy XR 1 tablet in the morning.3. Hold Lisinopril and monitor blood pressure. If BP > 130/80, restart lisinopril 4. Resume to Bike 3 times a week for 20 minutes. Add resistance training to help retain muscle mass5. Schedule a dental appointmen t6. Keep looking for a PCP7. I will follow up in 3 months Preventive health recommenda tions:1. Yearly dilated eye exam2. Yearly foot exam conducted by a health care provider3. Daily visual foot inspection 4. Yearly dental exam and dental cleaning at least twice a year Physical activity suggestion s: 1. It is recommende d to walk 10,000 steps per day. One strategy to achieve that goal is to get up and walk 250 steps each hour while sitting and working.2. It is recommende d to collect 150 minutes/we ek of moderate to brisk activity such as stationary bike or treadmill, chair exercises, body weight Meal planning suggestion s:1. The recommenda tion for grams of carbohydra michelle with each meal is 30-45 grams of carbs for women and 45-60 grams of carbs for men per meal. Snacks should be limited to less than 10 grams.2. No added sugars: soda, sweet tea, juice, milk, sports drinks, cookies, cakes, doughnuts, ice cream, alcohol3. No refined grains: bread, tortillas, popcorn, pretzels, chips, potatoes4. Eat non-starch y vegetables : broccoli, cauliflowe r, carrots, celery, cucumbers, spinach, kale, etc.5. Eat protein: eggs, cheese, chicken, beef, pork, fish6. Eat only healthy fats: avocado, peanut or almond butter, nuts, canola or olive oil, olives Blood sugar goals:Fast in-130Befo re meals: 110-1401-2 hours after the start of a meal < 180 One strategy for fine tuning blood sugars is to count how many carbs you ate with the meal 2 hours prior to checking a blood sugar reading. If the blood sugar is > 180 two hours after the start of the meal, you ate too many carbohydra michelle and will need to cut back at the next meal until you can consistent ly keep blood sugars < 180. [id number] Samreen Chance NP Level2 CT Office [address] [place] [address] [address] [facility] [place] [address] 08/25/2024 13:30:33 08/25/2024 13:55:31 Hyperglycemia due to type 2 diabetes mellitus [id number] 31281 E11.65 After visit rose jackson for 08/25/24: 1. Continue Mounjaro 10 mg weekly on Saturday.2. Continue Synjardy XR 1 tablet in the morning.3. Continue exercise bike4. Schedule a dental appointmen t5. Keep looking for a PCP. Foot exam needed6. I will follow up in 6 months Preventive health recommenda tions:1. Yearly dilated eye exam2. Yearly foot exam conducted by a health care provider3. Daily visual foot inspection 4. Yearly dental exam and dental cleaning at least twice a year Physical activity suggestion s: 1. It is recommende d to walk 10,000 steps per day. One strategy to achieve that goal is to get up and walk 250 steps each hour while sitting and working.2. It is recommende d to collect 150 minutes/we ek of moderate to brisk activity such as stationary bike or treadmill, chair exercises, body weight Meal planning suggestion s:1. The recommenda tion for grams of carbohydra michelle with each meal is 30-45 grams of carbs for women and 45-60 grams of carbs for men per meal. Snacks should be limited to less than 10 grams.2. No added sugars: soda, sweet tea, juice, milk, sports drinks, cookies, cakes, doughnuts, ice cream, alcohol3. No refined grains: bread, tortillas, popcorn, pretzels, chips, potatoes4. Eat non-starch y vegetables : broccoli, cauliflowe r, carrots, celery, cucumbers, spinach, kale, etc.5. Eat protein: eggs, cheese, chicken, beef, pork, fish6. Eat only healthy fats: avocado, peanut or almond butter, nuts, canola or olive oil, olives Blood sugar goals:Fast in-130Befo re meals: 110-1401-2 hours after the start of a meal < 180 One strategy for fine tuning blood sugars is to count how many carbs you ate with the meal 2 hours prior to checking a blood sugar reading. If the blood sugar is > 180 two hours after the start of the meal, you ate too many carbohydra michelle and will need to cut back at the next meal until you can consistent ly keep blood sugars < 180. Nausea [id number] R11.0 [id number] Samreen Chance NP Level2 CT Office [address] [place] [address] [place] [address] [place] [address] 02/16/2025 11:48:49 02/16/2025 12:10:57 Hyperglycemia due to type 2 diabetes mellitus [id number] 19532 E11.65 After visit instructio ns for 02/16/25: TIR up to 98% from 87% and GMI down to 6.6% from 7%. 1. Increase Mounjaro to 12.5mg mg weekly2. Continue Synjardy XR 1 tablet in the morning.3. You can stop Synjardy XR if you have blood sugars <70 once you start Mounjaro to 12.5mg4. Schedule a dental appointmen t5. Keep looking for a PCP. Foot exam needed6. Visit [facility] [employer] to find a therapist or counselor who can help address stress eating7. Reach out to your hitting coach, Diana, to find out if there any group classes regarding eating habits8. I will follow up in 5 months Preventive health recommenda tions:1. Yearly dilated eye exam2. Yearly foot exam conducted by a health care provider3. Daily visual foot inspection 4. Yearly dental exam and dental cleaning at least twice a year Physical activity suggestion s: 1. It is recommende d to walk 10,000 steps per day. One strategy to achieve that goal is to get up and walk 250 steps each hour while sitting and working.2. It is recommende d to collect 150 minutes/we ek of moderate to brisk activity such as stationary bike or treadmill, chair exercises, body weight Meal planning suggestion s:1. The recommenda tion for grams of carbohydra michelle with each meal is 30-45 grams of carbs for women and 45-60 grams of carbs for men per meal. Snacks should be limited to less than 10 grams.2. No added sugars: soda, sweet tea, juice, milk, sports drinks, cookies, cakes, doughnuts, ice cream, alcohol3. No refined grains: bread, tortillas, popcorn, pretzels, chips, potatoes4. Eat non-starch y vegetables : broccoli, cauliflowe r, carrots, celery, cucumbers, spinach, kale, etc.5. Eat protein: eggs, cheese, chicken, beef, pork, fish6. Eat only healthy fats: avocado, peanut or almond butter, nuts, canola or olive oil, olives Blood sugar goals:Fast in-130Befo re meals: 110-1401-2 hours after the start of a meal < 180 One strategy for fine tuning blood sugars is to count how many carbs you ate with the meal 2 hours prior to checking a blood sugar reading. If the blood sugar is > 180 two hours after the start of the meal, you ate too many carbohydra michelle and will need to cut back at the next meal until you can consistent ly keep blood sugars < 180. Health Concerns Section Related Observation LastModified by Organization Detai ls LastModified Time None Recorded Concern Status LastModified by Organization Details LastModified Time None Recorded Advance Directives Directive None Recorded Payers Insurance Date Sequence Insurance Name Policy Number Policy Kong Covered Member ID Kong Member ID Guarantor Name 02/16/2025 1 [facility] [id number] Nilsa Welch [id number] Nilsa Welch Notes Date Note Type Note Provider Name and Address Organization Details Recorded Time 4 text/html CGM DataReported by PatientCGM PatternsFor time in range, patient pjnolbw45.46% (03/10/24 to 03/23/24)(11.94% (12/05/23 to 12/18/23)). For gmi, patient reports7.3% (03/23/24(8.5% (12/18/23)). For average daily glucose, patient fqgtdwo985.84. For cv, patient .8. Initial Provider Regulatory RequirementsReported by Patient Medication TakingReported by Patient Disposition*Reported by PatientDispositionFor provider visit complete, patient reportsschedule medication management follow up in 4 week(s). Activity and Nutrition AssessmentReported by Patient Follow-Up Provider Regulatory RequirementsReported by PatientFollow-Up Provider Regulatory RequirementsFor provider regulatory requirements, patient reportsi have verified that the patient is located in [facility] at time of this visit.,i have verified and verbalized to the patient my name, credentials, and active license to practice in the state the patient is currently in and resides., ean have reviewed and updated the past medical history, past surgical history, social history, medication list and allergies. these were collected and documented by the level2 provider. Level2 Provider Medication changesReported by StaffLevel2 Provider Medication changesFor medication changes during visit, staff reportsglp-1/gip ra increaseandsglt-2 start(12/20/23: increase mounjaro to 7.5mg12/20/23: increase metformin er 500mg from 1 tab bid to 2 tabs bid). Problem Solving/MonitoringReported by Patient Completed EducationReported by Patient 03/24/24: Provider medication management follow up visit. TIR up to 68% from 12% and GMI down to 7.3% from 8.5%. Reports nausea with Mounjaro 7.5 mg and her last dose is today. He agreed to increase it to 10 mg at the pharmacy has it available and we will order some Zofran. She is due for refill on metformin and agreed to start Synjardy XR instead. Samreen Chance NP null, [place] - Level 2 Medical Services 03/24/2024 11:19:15 4 text/html CGM DataReported by PatientCGM PatternsFor time in range, patient .66% (04/06/24 to 04/19/24)(68.46% (03/10/24 to 03/23/24)11.94% (12/05/23 to 12/18/23)). For gmi, patient reports6.7% (04/19/24)(7.3% (.5% (12/18/23)). For average daily glucose, patient cdmzand188.85. For cv, patient egesnqu55.43. Initial Provider Regulatory RequirementsReported by Patient Medication TakingReported by Patient Disposition*Reported by PatientDispositionFor provider visit complete, patient reportsschedule medication management follow up in 6 week(s). Activity and Nutrition AssessmentReported by Patient Follow-Up Provider Regulatory RequirementsReported by PatientFollow-Up Provider Regulatory RequirementsFor provider regulatory requirements, patient reportsi have verified that the patient is located in [facility] at time of this visit.,i have verified and verbalized to the patient my name, credentials, and active license to practice in the state the patient is currently in and resides., ean have reviewed and updated the past medical history, past surgical history, social history, medication list and allergies. these were collected and documented by the level2 provider. Level2 Provider Medication changesReported by StaffLevel2 Provider Medication changesFor medication changes during visit, staff reportsglp-1/gip ra increase(12/20/23: increase mounjaro to 7.5mg12/20/23: increase metformin er 500mg from 1 tab bid to 2 tabs bid). Problem Solving/MonitoringReported by Patient Completed EducationReported by Patient 04/21/24: Provider medication management follow up visit. TIR up to 93% from 68% and GMI down to 6.7% from 7.3%. MAR[place]A [place], [place] - Level 2 Medical Services 04/21/2024 11:41:19 4 text/html CGM DataReported by PatientCGM PatternsFor time in range, patient fxwvoiq36.66% (05/18/24 to 05/31/24)(92.66% (04/06/24 to 04/19/24)68.46% (03/10/24 to 03/23/24)11.94% (12/05/23 to 12/18/23)). For gmi, patient reports6.6% (05/31/24)(6.7% (04/19/24)7.3% (248.5% (12/18/23)). For average daily glucose, patient tiezeyb799.79. For cv, patient ugsvmjn17.2. Initial Provider Regulatory RequirementsReported by Patient Medication TakingReported by Patient Disposition*Reported by PatientDispositionFor provider visit complete, patient reportsschedule a follow up care plan with me in 3 month(s). Activity and Nutrition AssessmentReported by Patient Follow-Up Provider Regulatory RequirementsReported by PatientFollow-Up Provider Regulatory RequirementsFor provider regulatory requirements, patient reportsi have verified that the patient is located in [facility] at time of this visit.,i have verified and verbalized to the patient my name, credentials, and active license to practice in the state the patient is currently in and resides., ean have reviewed and updated the past medical history, past surgical history, social history, medication list and allergies. these were collected and documented by the level2 provider. Level2 Provider Medication changesReported by StaffLevel2 Provider Medication changesFor medication changes during visit, staff reportsno medication changes(12/20/23: increase mounjaro to 7.5mg12/20/23: increase metformin er 500mg from 1 tab bid to 2 tabs bid). Problem Solving/MonitoringReported by Patient Completed EducationReported by Patient 06/02/24: Provider medication management follow up visit. TIR up to 96% from 93% and GMI stable at 6.6%. [place], [place] - Level 2 Medical Services 06/02/2024 15:43:27 4 text/html CGM DataReported by PatientCGM PatternsFor time in range, patient aruvlix31.15% (08/10/24 to 08/23/24)(95.66% (05/18/24 to 05/31/24)92.66% (04/06/24 to 04/19/24)68.46% (03/10/24 to 03/23/24)11.94% (12/05/23 to 12/18/23)). For gmi, patient reports7% (08/23/24)(6.6% (05/31/24)6.7% (04/19/24)7.3% (.5% (12/18/23)). For average daily glucose, patient dhxyhfn498.44. For cv, patient ueanijx15.96. Initial Provider Regulatory RequirementsReported by Patient Medication TakingReported by Patient Disposition*Reported by PatientDispositionFor provider visit complete, patient reportsschedule a follow up care plan with me in 6 month(s). Activity and Nutrition AssessmentReported by Patient Follow-Up Provider Regulatory RequirementsReported by PatientFollow-Up Provider Regulatory RequirementsFor provider regulatory requirements, patient reportsi have verified that the patient is located in [facility] at time of this visit.,i have verified and verbalized to the patient my name, credentials, and active license to practice in the state the patient is currently in and resides., ean have reviewed and updated the past medical history, past surgical history, social history, medication list and allergies. these were collected and documented by the level2 provider. Level2 Provider Medication changesReported by StaffLevel2 Provider Medication changesFor reasons for no medication change, staff reportsmetrics at targetandother(side effects: nausea). For medication changes during visit, staff reportsno medication changes(12/20/23: increase mounjaro to 7.5mg12/20/23: increase metformin er 500mg from 1 tab bid to 2 tabs bid). Problem Solving/MonitoringReported by Patient Completed EducationReported by Patient 08/25/24: Three month provider care plan visit. TIR down to 87% from 96% and GMI up to 7% from 6.6%. Patient reports she is injecting Mounjaro 10 mg about every 9 to 10 days to decrease the risk of nausea. I offered to decrease it to 7.5 and she would like it be 10 mg for a little while longer. She found a new PCP and is pending and appointment to be scheduled. 06/02/24: Provider medication management follow up visit. TIR up to 96% from 93% and GMI stable at 6.6%. Samreen Chance NP null, [place] - Level 2 Medical Services 08/25/2024 13:59:18 5 text/html CGM DataReported by PatientCGM PatternsFor time in range, patient ewhappi74% (feb 02, 2025 - february 15, 2025)(87.15% (08/10/24 to 08/23/24)95.66% (05/18/24 to 05/31/24)92.66% (04/06/24 to 04/19/24)68.46% (03/10/24 to 03/23/24)11.94% (12/05/23 to 12/18/23)). For gmi, patient reports6.6% (02/15/25)(7% (08/23/24)6.6% (05/31/24)6.7% (04/19/24)7.3% (248.5% (12/18/23)). For average daily glucose, patient [id number]. For cv, patient [id number]. Initial Provider Regulatory RequirementsReported by Patient Medication TakingReported by Patient Disposition*Reported by PatientDispositionFor provider visit complete, patient reportsschedule medication management follow up in 5 month(s). Activity and Nutrition AssessmentReported by Patient Follow-Up Provider Regulatory RequirementsReported by PatientFollow-Up Provider Regulatory RequirementsFor provider regulatory requirements, patient reportsi have verified that the patient is located in [facility] at time of this visit.,i have verified and verbalized to the patient my name, credentials, and active license to practice in the state the patient is currently in and resides., ean have reviewed and updated the past medical history, past surgical history, social history, medication list and allergies. these were collected and documented by the level2 provider. Level2 Provider Medication changesReported by StaffLevel2 Provider Medication changesFor medication changes during visit, staff reportsglp-1/gip ra increase(12/20/23: increase mounjaro to 7.5mg12/20/23: increase metformin er 500mg from 1 tab bid to 2 tabs bid02/17/25: increase mounjaro to 12.5mg). Problem Solving/MonitoringReported by Patient Completed EducationReported by Patient 02/16/25: Six month provider care plan visit. TIR up to 98% from 87% and GMI down to 6.6% from 7%. Patient is ready to increase Mounjaro to 12.5mg. She reports stress eating and I recommended to find a therapist or counselor on [employer]. 08/25/24: Three month provider care plan visit. TIR down to 87% from 96% and GMI up to 7% from 6.6%. Patient reports she is injecting Mounjaro 10 mg about every 9 to 10 days to decrease the risk of nausea. I offered to decrease it to 7.5 and she would like it be 10 mg for a little while longer. She found a new PCP and is pending and appointment to be scheduled. Samreen Chance, MARIXA villalobos, ALFREDO - Level 2 Medical Services 02/16/2025 12:12:13 OBGyn Episode No OBEpisode recorded.
== END 2025-05-07 14:54 | disposition home or self-care (01) ==
LOC: CHSIMG 14:54
PROVIDERS: PCP Nurse Practitioner; Visit Provider Nurse Practitioner
DX: Z12.31 Encounter for screening mammogram for malignant neoplasm of breast (principal); R92.8 Other abnormal and inconclusive findings on diagnostic imaging of breast
CPT/HCPCS: 77063; 77067

== ENCOUNTER 2025-05-18 09:36 | Outpatient (CLI) | payer OTHER, SELFPAY ==
--- NOTE | ~2025-05-18 | MM_ITS ---
EXAMINATION: MM diagnostic [facility] RT w kevin INDICATION: 59-year old female; BI-RADS 0, callback to evaluate Right breast cluster of microcalcific ations. COMPARISON: 05/07/2025 TECHNIQUE: Digital breast tomosynthesis True lateral view and magnification CC and ML views of Right breast were obtained with computer-aided detection to assist in interpretation of the study. FINDINGS: There are scattered areas of fibroglandular density. The cluster of microcalcifications seen in the upper outer Right breast on the screening mammogram de monstrate coarse calcifications. There are similar calcifications scattered in the rest of the breast . These are considered probably benign. IMPRESSION: Right breast probably benign coarse calcifications. RECOMMENDATION: Diagnostic right mammogram in 6 months. BI-RADS 3, PROBABLY BENIGN Reviewed, dictated and finalized at location B.
--- OUTSIDE RECORDS SUMMARY | 2025-05-18 09:58 | XMS_ITS | Clinical Summary ---
Author Organization [facility] [place] [facility] [address] [facility] [place] [facility] [place] [address] Phone Care Team Providers Care Associate Software Developer Name Role Phone Agustín Saucedo MD Primary [...] on file Legal Sex Female 6:04 AM APPEALS COORDINATOR Gender Identity Not on file Sexual Orientation [...] Relevant to Health Maintenance Insurance Care Teams Associate Software Developer Relationship Specialty Start Date End Date Agustín Saucedo MD PCP - General Internal Medicine 06/26/11
--- OUTSIDE RECORDS SUMMARY | 2025-05-18 09:58 | XMS_ITS | Referral Summary ---
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 CHOICE [facility] HMO/PPO Address: [facility] [id number] [place] [address] Care Teams Reading Assistant Relationship Specialty Start Date End Date Quin Corley MD [address] [address] PCP - General Internal Medicine 09/01/21
--- OUTSIDE RECORDS SUMMARY | 2025-05-18 09:58 | XMS_ITS | Clinical Summary ---
Author Organization [facility] [address] Address [address] [place] [phone] Care Team Providers Care Cable Splicer Helper Name Role Phone Quin Corley MD Primary [...] History Date Comments Type 2 diabetes mellitus Diabete s type 2 Hyperlipidemia Family History Medical History [...] on file Legal Sex Female 2:54 PM BUSINESS SUPPORT COORDINATOR Gender Identity Female 04/24/2022 5:02 PM CDT [...] age to complete this topic Insurance [place] [address] [facility] CHOICE [place] [address] [facility] CHOICE PLUS Care Teams Cable Splicer Helper Relationship Specialty Start Date End Date Quin Corley MD [address] [address] PCP - General Internal Medicine 09/01/21
--- OUTSIDE RECORDS SUMMARY | 2025-05-18 09:58 | XMS_ITS | Clinical Summary ---
Author Organization [facility] [employer] Address [address] [facility] [place] [address] Care Team Providers Care Physical Therapist Assistant Name Role Phone Unavailable Primary Care Provider Unavailabl e Source Comments [facility] [employer],non-owned Affiliates and Associated Physician Practices is amultiple site organization consisting of ambulatory clinics and hospital sitesin [place], [place], [place] and [place]. This disclosure is being madepursuant to the Care Everywhere program and may not contain all information available regarding this patient. Last updated 18.[employer] Allergies No known active allergies Medications * [...] on file Legal Sex Female 10:22 AM DRY CLEANER HAND Gender Identity Not on file Sexual Orientation Not on file Last Filed Vital Signs Vital Sign Reading Time Taken Comments Blood Pressure 142/90 11/18/2018 10:30 AM DRY CLEANER HAND Pulse 94 11/18/2018 10:03 AM DRY CLEANER HAND Temperature 36.8 C (98.2 F) 11/18/2018 10:03 AM DRY CLEANER HAND Respiratory Rate 16 11/18/2018 10:03 AM DRY CLEANER HAND Oxygen Saturation 98% 11/18/2018 10:03 AM DRY CLEANER HAND Inhaled Oxygen Concentration - - Weight 108.9 kg (240 lb) 11/18/2018 10:03 AM DRY CLEANER HAND Height 175.3 cm (5' 9) 11/18/2018 10:03 AM DRY CLEANER HAND Body Mass Index 35.44 11/18/2018 10:03 AM DRY CLEANER HAND Plan of Treatment Health Maintenance Due Date [...] to complete this [place] [address] [facility]
== END 2025-05-18 09:37 | disposition home or self-care (01) ==
PROVIDERS: PCP Nurse Practitioner; Visit Provider Nurse Practitioner
DX: R92.2 Inconclusive mammogram (principal)
CPT/HCPCS: 77061; 77065; G0279